=== PATIENT | female | born 1955 | race Caucasian/White ===

== ENCOUNTER 2017-05-01 17:13 | Emergency (ER) | payer OTHER | END 2017-05-01 19:31 | disposition home or self-care (01) | LOC: EDH 17:13 | DX: G89.29 Other chronic pain (principal); M79.604 Pain in right leg; Z98.890 Other specified postprocedural states; Z88.0 Allergy status to penicillin; Z88.2 Allergy status to sulfonamides; Z87.891 Personal history of nicotine dependence | CPT/HCPCS: 93971 ==